=== PATIENT | male | born 1950 | race Caucasian/White ===

== ENCOUNTER 2022-09-11 14:39 | Outpatient (CLI) | payer MEDICARE, SELFPAY ==
[2022-09-11 11:49] LABS: Creatinine Urine 214.3 mg/dL
[2022-09-11 11:52] LABS: Microalbumin Creatinine Ratio 0 mg/g (0-30); Microalbumin Urine 2 mg/dL
[2022-09-11 11:55] LABS: Albumin* 4.6 g/dL (3.3-5.0)
[2022-09-11 11:56] LABS: Chloride* 104 mmol/L (96-114); Potassium* 4.7 mmol/L (3.6-5.1); Sodium* 137 mmol/L (135-149)
[2022-09-11 11:58] LABS: Alkaline Phosphatase* 42 U/L (40-150); Aspartate Amino Transferase* 43 U/L (12-35); Blood Urea Nitrogen* 19 mg/dL (7-30); Carbon Dioxide* 26 mmol/L (20-32); Cholesterol* 170 mg/dL (90-199); Creatinine* 0.8 mg/dL (0.5-1.5); Estimated Glomerular Filt Rate 95 ml/min; Total Protein* 7.3 g/dL (6.0-8.3)
[2022-09-11 11:59] LABS: Alanine Aminotransferase* 30 U/L (4-50); Calcium* 9.6 mg/dL (8.4-10.6); Glucose* 136 mg/dL (60-115); HDL Cholesterol* 40 mg/dL (>=40); LDL Cholesterol Calculated 112 mg/dL (<100); Triglycerides* 90 mg/dL (40-149)
[2022-09-11 12:30] LABS: PSA Screen* 1.85 ng/mL (0.10-4.00)
== END 2022-09-11 14:40 | disposition home or self-care (01) ==
PROVIDERS: PCP Internal Medicine; Visit Provider Internal Medicine
DX: E78.5 Hyperlipidemia, unspecified (principal); E11.9 Type 2 diabetes mellitus without complications; Z13.9 Encounter for screening, unspecified; Z12.5 Encounter for screening for malignant neoplasm of prostate
CPT/HCPCS: 80053; 80061; 82043; 82570; 84153

== ENCOUNTER 2023-09-18 10:00 | Outpatient (CLI) | payer MEDICARE, SELFPAY | END 2023-09-18 10:01 | disposition home or self-care (01) | LOC: NFLDREF 09-21 08:35 | PROVIDERS: PCP Internal Medicine; Referring Provider Internal Medicine; Visit Provider Internal Medicine | DX: Z00.00 Encounter for general adult medical examination without abnormal findings (principal); E11.9 Type 2 diabetes mellitus without complications; E78.5 Hyperlipidemia, unspecified; Z13.9 Encounter for screening, unspecified; Z12.5 Encounter for screening for malignant neoplasm of prostate | CPT/HCPCS: 80053; 80061; 82043; 82570; 84153 ==

== ENCOUNTER 2024-05-25 09:47 | Outpatient (CLI) | payer MEDICARE, SELFPAY | END 2024-05-25 09:48 | disposition home or self-care (01) | PROVIDERS: PCP Internal Medicine; Visit Provider Internal Medicine | DX: N45.1 Epididymitis (principal); E78.5 Hyperlipidemia, unspecified; E11.9 Type 2 diabetes mellitus without complications; Z12.5 Encounter for screening for malignant neoplasm of prostate | CPT/HCPCS: 80053; 80061; G0103 ==

== ENCOUNTER 2024-06-02 14:32 | Outpatient (CLI) | payer MEDICARE, SELFPAY | END 2024-06-02 14:33 | disposition home or self-care (01) | LOC: NFLDREF 14:34 | PROVIDERS: PCP Internal Medicine; Visit Provider Internal Medicine | DX: M25.862 Other specified joint disorders, left knee (principal) | CPT/HCPCS: 87070 ==

== ENCOUNTER 2024-12-14 10:08 | Outpatient (CLI) | payer MEDICARE, SELFPAY | END 2024-12-14 10:09 | disposition home or self-care (01) | LOC: NFLDREF 12-19 02:28 | PROVIDERS: PCP Internal Medicine; Referring Provider Internal Medicine; Visit Provider Internal Medicine | DX: E78.5 Hyperlipidemia, unspecified (principal); E11.65 Type 2 diabetes mellitus with hyperglycemia; Z79.84 Long term (current) use of oral hypoglycemic drugs | CPT/HCPCS: 80061; 82043; 82570 ==

== ENCOUNTER 2025-05-30 10:20 | Outpatient (CLI) | payer MEDICARE, SELFPAY | END 2025-05-30 10:21 | disposition home or self-care (01) | LOC: NFLDREF 06-01 17:21 | PROVIDERS: PCP Internal Medicine; Referring Provider Internal Medicine; Visit Provider Internal Medicine | DX: E78.5 Hyperlipidemia, unspecified (principal); E11.9 Type 2 diabetes mellitus without complications; Z12.5 Encounter for screening for malignant neoplasm of prostate | CPT/HCPCS: 80053; 80061; G0103 ==